=== PATIENT | female | born 1935 | race African-American/Black ===

== ENCOUNTER 2019-11-12 05:11 | Emergency (ER) | payer MEDICARE ==
[~2019-11-12] VITALS: Ht 162.6 cm; Wt 51.0 kg
[~2019-11-12 05:11] MED LIST: MULTIVITAMIN DAILY
[2019-11-12 07:12] LABS: HEMATOCRIT. 37.8 % (36.0-48.0); HEMOGLOBIN. 12.7 g/dL (12.0-16.0); MEAN CORPUSCULAR VOLUME 83.6 fL (81.0-99.0); MEAN PLATELET VOLUME 8.5 fl (7.4-10.4); PLATELET 179 x1000/uL (130-400); RED BLOOD CELL COUNT 4.52 mill/uL (4.2-5.4); RED CELL DISTRIBUTION WIDTH 13.6 % (11.6-14.6)
[2019-11-12 07:19] LABS: CHLORIDE 93 mEq/L (98-107)
[2019-11-12 07:23] LABS: ETHANOL BLOOD < 10 mg/dL
[2019-11-12 07:28] LABS: INR 0.9; PROTHROMBIN TIME 9.7 sec (9.6-11.0)
[2019-11-12] MEDS ORDERED: ONDANSETRON 4MG ODT PO ONE (07:30)
[2019-11-12 07:40] LABS: PLATELET ESTIMATE NORMAL
[2019-11-12 07:41] LABS: CLARITY URINE CLEAR (CLEAR); COLOR URINE YELLOW (YELLOW); KETONES URINE 2+ (NEGATIVE); LEUKOCYTE ESTERASE URINE NEGATIVE (NEGATIVE); NITRITE URINE NEGATIVE (NEGATIVE); OCCULT BLOOD URINE 1+ (NEGATIVE); PH URINE 6.5 (4.5-8.0); PROTEIN URINE TRACE (NEGATIVE); SPECIFIC GRAVITY URINE 1.005 (1.005-1.030); UROBILINOGEN URINE 0.2 E.U./dL (0.2-1.0)
[2019-11-12 07:57] LABS: *COCAINE SCREEN URINE NEGATIVE (NEGATIVE); METHADONE URINE SCREEN NEGATIVE (NEGATIVE); OPIATES URINE SCREEN NEGATIVE (NEGATIVE)
[2019-11-12 07:58] LABS: *AMPHETAMINES SCREEN URINE NEGATIVE (NEGATIVE); *BARBITURATES SCREEN URINE NEGATIVE (NEGATIVE); *BENZODIAZEPINES SCREEN URINE NEGATIVE (NEGATIVE); CANNABINOID URINE SCREEN NEGATIVE (NEGATIVE); PHENCYCLIDINE URINE SCREEN NEGATIVE (NEGATIVE)
[2019-11-12] MEDS ORDERED: TETANUS, DIPHTHERIA, PERTUSSIS VAC/PF 0.5ML (>7YR OLD) IM ONE (08:45)
[2019-11-12 13:00] VITALS: BP 128/57
== END 2019-11-12 13:14 | disposition home or self-care (01) ==
LOC: ER 05:11
DX: T36.95XA Adverse effect of unspecified systemic antibiotic, initial encounter (principal); X58.XXXA Exposure to other specified factors, initial encounter; R06.02 Shortness of breath; R05 Cough; R11.0 Nausea
CPT/HCPCS: 36415; 71045; 80053; 80305; 80320; 81003; 83880; 84443; 84484; 85025; 85610; 85730; 87804; 93005; 99284; Q0162; G0480

== ENCOUNTER 2021-06-14 23:01 | Emergency (ER) | payer OTHER ==
[~2021-06-14] VITALS: Ht 160 cm; Wt 49.0 kg
[2021-06-15 05:50] LABS: HEMATOCRIT. 38.7 % (36.0-48.0); MEAN CORPUSCULAR VOLUME 83.5 fL (81.0-99.0); MEAN PLATELET VOLUME 9.1 fl (7.4-10.4); PLATELET 162 x1000/uL (130-400); RED BLOOD CELL COUNT 4.63 mill/uL (4.2-5.4)
[2021-06-15 05:52] LABS: CHLORIDE 96 mEq/L (98-107)
[2021-06-15 06:45] LABS: PLATELET ESTIMATE NORMAL
[2021-06-15 08:47] LABS: PROTHROMBIN TIME 10.5 sec (9.6-11.0)
[2021-06-15] MEDS ORDERED: LEVO750T46 MT (10:13)
[2021-06-15 10:47] VITALS: BP 123/60
== END 2021-06-15 10:48 | disposition left against medical advice (07) ==
LOC: ER 23:01 → CANBEDREQ 06-15 18:24
DX: R07.89 Other chest pain (principal); R06.02 Shortness of breath; R91.8 Other nonspecific abnormal finding of lung field; Z98.890 Other specified postprocedural states
CPT/HCPCS: 36415; 71045; 71275; 80053; 83605; 84145; 84484; 85025; 85379; 93005; 99285

== ENCOUNTER 2025-06-18 15:26 | Emergency (ER) | payer MEDICARE, OTHER ==
[~2025-06-18] VITALS: Ht 160 cm; Wt 45.3 kg
[~2025-06-18 15:26] MED LIST changes: +LEVO750T68 MT
[2025-06-18 15:48] VITALS: TEMP 36.6; O2SAT 98
[2025-06-18] MEDS: LIDOCAINE 5% PATCH TOP SCH (17:18)
[2025-06-18] MEDS: IBUPROFEN 600MG TABLET PO ONE (17:18)
[2025-06-18] MEDS: ACETAMINOPHEN 325MG TABLET PO ONE (19:00)
[2025-06-18] MEDS ORDERED: IBUP-2029 MT (19:07)
[2025-06-18 19:28] VITALS: BP 165/58; PULSE 60; RESP 16; O2SAT 97
== END 2025-06-18 19:30 | disposition home or self-care (01) ==
LOC: ER 15:26
DX: S22.31XA Fracture of one rib, right side, initial encounter for closed fracture (principal); X58.XXXA Exposure to other specified factors, initial encounter; Y93.89 Activity, other specified; Y92.89 Other specified places as the place of occurrence of the external cause; Y99.8 Other external cause status
CPT/HCPCS: 71045; 99284